=== PATIENT | female | born 1970 | race Caucasian/White ===

== ENCOUNTER 2019-03-16 06:48 | Day surgery (SDC) | payer BC ==
[~2019-03-16 06:48] MED LIST: Buffered Lidocaine 1% SYRIN* 1 ML/SYRINGE INTRADERM ONE; Lactated Ringers 1000 ML Bag* 1,000 ML IV SCH; ceFAZolin 2 GM PREMIX in ORs 2 GM/50 ML BAG IVPB ONE
[2019-03-16] MEDS ORDERED: Lidocaine 2% PF * 5 ML VIAL ONE ×2 (08:02→09:22)
[2019-03-16] MEDS ORDERED: Propofol* 10 MG/ML 20 ML BTL ONE (08:02)
[2019-03-16] MEDS ORDERED: fentaNYL* 50 MCG/ML 2 ML VIAL (100 MCG VIAL) ONE ×2 (08:03→11:44)
[2019-03-16] MEDS ORDERED: Midazolam* 1 MG/ML 2 ML VIAL (2 MG) ONE (08:03)
[2019-03-16] MEDS ORDERED: Bupivacaine 0.25% W/EPI* 10 ML SDV ONE (08:54)
[2019-03-16] MEDS ORDERED: Rocuronium* 10 MG/ML VIAL ONE (09:21)
[2019-03-16] MEDS ORDERED: Bupivacaine 0.5%* 50 ML VIAL ONE (10:01)
[2019-03-16] MEDS ORDERED: Naloxone* 0.4 MG/ML 1 ML VIAL IV PRN (10:02)
[2019-03-16] MEDS ORDERED: DiMENhydriNATE IV* 50 MG/ML VIAL IV PUSH PRN (10:02)
[2019-03-16] MEDS ORDERED: oxyCODONE TAB* 5 MG TAB PO PRN (10:02)
[2019-03-16] MEDS ORDERED: Acetaminophen TAB* 325 MG PO PRN (10:02)
[2019-03-16] MEDS ORDERED: Metoclopramide IV* 5 MG/ML 2 ML VIAL ONE (10:03)
[2019-03-16] MEDS ORDERED: Ondansetron INJ* 2 MG/ML VIAL ONE (10:03)
[2019-03-16] MEDS ORDERED: Dexamethasone IV* 4 MG/ML 1 ML (4 MG) ONE (10:03)
[2019-03-16] MEDS ORDERED: Ketorolac INJ* 30 MG/ML 1 ML VIAL ONE (10:03)
[2019-03-16] MEDS ORDERED: oxyCODONE TAB* 5 MG TAB ONE (11:21)
[2019-03-16] MEDS ORDERED: Acetaminophen TAB* 325 MG ONE (11:21)
--- NOTE | 2019-03-16 11:39 | OP ---
Operative Report - Blank - Operative Report Date of Operation: 03/16/19 Note: PATIENT: Tanya Lassiter DATE OF : 1970 DATE OF SURGERY: 03/16/2019 SURGEON: Ashutosh Roe MD POWER BARKER OPERATOR: GRICELDA Freitas, whos assistance was necessary for positioning, retraction, help with instrumentation, and closure. ANESTHESIOLOGIST: Dr. Guillen PREOPERATIVE DIAGNOSIS: Right ankle peroneal tenosynovitis and peroneus brevis tear vs. rupture. Right calcaneal exostosis. POSTOPERATIVE DIAGNOSIS: Right ankle peroneal tenosynovitis and peroneus brevis rupture. Right calcaneal exostosis. OPERATION: 1. Right peroneus brevis tendon secondary reconstruction with semitendinosis allograft tendon. 2. Right synovectomy of peroneal tendon sheath. 3. Right calcaneal saucerization with excision of an enlarged peroneal tubercle. ANESTHESIA: General IMPLANTS: none TOURNIQUET TIME: Less than 1 hour with a well-padded thigh tourniquet at 250mmHg SPECIMENS: none ESTIMATED BLOOD LOSS: minimal COMPLICATIONS: none STATUS: Stable from the operating room to the recovery room and then home. INDICATIONS FOR PROCEDURE: Tanya has had persistent pain and swelling at her right lateral ankle despite nonoperative treatment. Both operative and non operative treatment alternatives were reviewed. Further, the nature and risks of surgery were reviewed in careful detail, in the office as well as the pre-operative holding area. Our discussions regarding the risks of surgery included, but were not limited to, infection, wound problems, nerve injury, neuroma, RSD, persistent symptoms, blood clot, failure of the surgery, and even the remote chance of catastrophic complication. DESCRIPTION OF PROCEDURE: The patient was seen in the preoperative holding unit and informed written consent was obtained. The appropriate extremity was marked. The patient was then brought to the operating room and carefully positioned on the operating room table. Anesthesia was induced. All bony prominences were padded with great care. A chlorhexidine based pre-scrub was performed followed by a chloraprep prep and drape in standard sterile fashion. A surgical safety pause was then conducted in which we confirmed the appropriate patient, extremity, planned procedure, availability of equipment, indication and administration of prophylactic antibiotics, and DVT prophylaxis in the form of a compression boot on the non-surgical extremity. An Esmarch exsanguination of the limb was then performed and the tourniquet inflated. I utilized an incision overlying the peroneal tendons laterally. I carried the dissection down through the soft tissue to the level of the periosteum and superior peroneal retinaculum (SPR) with care taken to protect the sural nerve, which was not visualized during the procedure. I carefully incised the SPR off of the posterior fibula to expose the peroneal tendons. Dissection of the tendons was carried distally. There was a large amount of inflamed tenosynovium within the tendon sheath. An extensive synovectomy was performed. The tendons were explored and the peroneus longus tendon was in good condition. The peroneus brevis tendon had ruptured with retraction of the proximal stump. The scarred in stumps were dissected out. The port quality tissue is removed until a viable tendon stump was reached. The distal tendon stump was also identified and dissected out. There is an approximately 6 cm gap between the 2 stump ends, therefore I decided to proceed with an allograft reconstruction. A semitendinosus tendon allograft was thawed. A Pulvertaft weave was performed at the distal stump and secured with numerous 0 Ethibond sutures. I then brought the ankle into a neutral dorsiflexion and everted position. The ankle was held in this position while a Pulvertaft weave was performed at the proximal stump and again secured with numerous 0 Ethibond sutures. I then exposed the enlarged peroneal tubercle. I took down the gliding layer and then utilized a rongeur to remove this large tubercle, thus performing a saucerization of the calcaneus. At this point, I carefully inspected the peroneal groove at the posterior aspect of the fibula. This was deemed to have adequate depth so the decision was made not to perform a groove deepening procedure. So at this point I carefully planned out the repair of the superior peroneal retinaculum. I then reduced the tendons and they sat nicely in the retro-fibular groove. The wound was copiously irrigated. I repaired the SPR utilizing #1 Vicryl suture in a transosseous horizontal mattress suture pattern. I utilized multiple sutures for this repair, appropriately tensioning the SPR. I was able to pass a Whately under the repaired SPR without difficulty after the repair. We then irrigated the wound copiously again. The wound was closed in a layered fashion utilizing 3-0 Monocryl and 3-0 nylon. A sterile dressing was then applied and the ankle was splinted in a neutral position. All needle and sponge counts were correct at the end of the case. The patient was awakened from anesthesia and transferred to the recovery room in stable condition. There were no complications. ATTESTATION: I attest I was present and scrubbed and performed the critical portions of the procedure myself. POST-OPERATIVE PLAN: The patient will remain [id number] for an anticipated duration of 6 weeks. Follow up will be in 2 weeks for likely suture removal and transition into a short leg cast.
[2019-03-16] MEDS: fentaNYL* 50 MCG/ML 2 ML VIAL (100 MCG VIAL) IV PRN ×2 (11:46→12:24)
[2019-03-16 12:24] VITALS: BP 126/75
--- NOTE | 2019-03-22 09:17 | HP ---
H&P (Free Text) History and Physical: Date: 03/16/19 Orthopedics H&P Chief Complaint: Right ankle pain. 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 In August,, she was working out at the gym, when she pushed off and had an immediate pain at her right lateral ankle. She reports that she did not roll the ankle or sustained a mechanical injury. She denies any history of ankle instability or recurrent ankle sprains. Since August, she has had persistent pain and swelling at the right lateral ankle. She has tried bracing and physical therapy without benefit. She ended up seeing Dr. Marie for a second opinion, who ordered an MRI, revealing a peroneal tendon tear. The pain is located at the right lateral ankle and is daily, mild to moderate, sharp. Pain worse with activities and lessened when weight bearing is discontinued. There is associated swelling, but no ecchymosis. No DM, smoking or h/o VTE Review of Systems: Negative for fever, recent visual changes, difficulty swallowing, chest pain, shortness of breath, abdominal pain, hematuria, easy bruising, diffuse weakness or lack of coordination, and diffuse rash. Positive for recent sore throat and cough. Positive for weight gain. Full PSFH and ROS documented and reviewed on patient intake form which will be scanned into the EMR. Past medical history: Arthritis. Past surgical history: Left knee arthroscopy, tubal ligation. Medications: Denies Allergies: No known drug allergies. No latex allergy. Family history: Diabetes, heart disease, cancer. Social history: She works as a teacher. No tobacco use. Approximately 2 alcoholic drinks per week. Physical Examination: Constitutional: Ht: 66" Wt: 176lb BP: 128/82 Resp: 15 T: 98.5 Pain Level: 0 BMI: 28.4 General appearance is healthy and non-septic in no acute distress. Cardiovascular: Pulse examination demonstrates positive pedal pulses with brisk capillary refill. There are no varicosities. Heart with a regular rate and rhythm. Lungs sounds clear to auscultation bilaterally. Abdomen: Soft and nontender. Lymphatic: No lymphadenopathy appreciated. Skin: Bilateral upper and lower extremity examination demonstrates no ulcerative lesions. Psychiatric / Neurological: Appropriate affect. Alert and oriented to person, place and time. There is no significant abnormality in coordination appreciated. Normoreflexive deep tendon reflex of the affected extremity. Musculoskeletal: Gait analysis reveals an antalgic gait. Bilateral upper extremities and contralateral lower extremity show full range of motion with no evidence of instability and no tenderness with palpation and 5 /5 strength. There is no gross deformity. Exam standing reveals mild bilateral cavovarus alignment. Sitting, there is 5/5 motor strength and intact light touch sensation. There is no global swelling, edema, or varicosities. The skin and nails are normal to inspection/palpation without evidence of RSD or lymphadenopathy. 10-40 ankle ROM, stable. There is tenderness at the peroneal tendons with some localized swelling. The peroneals have 5/5 motor and are reduced and stable on circumduction. No tenderness at the navicular or talonavicular joint. There is no bony tenderness with careful palpation of the knee, proximal fibula , ankle, and foot, including the 5th metatarsal and anterior calcaneus. Squeeze and external rotation tests are normal. Negative Tinel test over superficial peroneal and sural nerves. Normal Coles test. Studies: X-rays were obtained, and independently interpreted and show no evidence of displaced fracture. I do not have her MRI images today, but I do have the report, which does show a peroneus brevis tendon tear. Note is made in the report of a dorsal navicular spur, as well as osteochondral lesion of the navicular. Impression and Plan: Right peroneal tendon tear in the setting of cavovarus foot alignment. She does not appear to have ankle instability both on history and exam. We did discuss the correlation of her malalignment and peroneal tendon injuries. We discussed treatment options, including both nonoperative and operative treatment. She feels she has exhausted nonoperative treatment, and would like to move forward with surgery. We discussed just addressing the peroneal tendons versus also addressing her cavovarus alignment. My recommendation would be to just address the peroneal tendons at this time. She was in agreement with this plan. After reviewing all of these factors, we discussed at length the pros/cons and potential risks and benefits of surgery. Surgical risks reviewed included but were not limited to infection, failure of healing, nerve injury, recurrent problems, neuroma, deep venous thrombosis or pulmonary embolism, chronic regional pain syndrome (reflex sympathetic dystrophy), failure to return to previous functional level, failure of the surgery and also the remote risk of catastrophic complications including loss of limb or . After this extensive discussion the patient expressed their desire to move forward with surgery. All questions were answered. Specifically, the surgical plan will be for: 1. Right ankle peroneal tendon exploration with debridement vs repair vs tenodesis vs allograft reconstruction 2. Possible right distal fibula groove deepening osteotomy 3. Possible saucerization of right calcaneus with excision of peroneal tubercle We discussed the postoperative protocol of 6 weeks nonweightbearing in a cast. We will plan on aspirin for DVT prophylaxis. She will work on getting another copy of the MRI sent here for my review of the images. Ashutosh Roe MD
== END 2019-03-16 12:52 | disposition home or self-care (01) ==
LOC: OR 06:48
PROVIDERS: ATTEND Orthopaedic Surgery
DX: S86.311A Strain of muscle(s) and tendon(s) of peroneal muscle group at lower leg level, right leg, initial encounter (principal); X50.0XXA Overexertion from strenuous movement or load, initial encounter; Y93.B9 Activity, other involving muscle strengthening exercises; Y92.39 Other specified sports and athletic area as the place of occurrence of the external cause; M25.774 Osteophyte, right foot; M70.871 Other soft tissue disorders related to use, overuse and pressure, right ankle and foot
CPT/HCPCS: A9270-GY; C1776; J0690; J1100; J1885; J2250; J2405; J2704; J2765; J3010; J3490